=== PATIENT | male | born 1975 | race Caucasian/White ===

== ENCOUNTER 2018-12-25 04:03 | Emergency (ER) | payer BC ==
[2018-12-25] MEDS ORDERED: Morphine 4 MG/ML VIAL (1 ml) 4 MG/ML VIAL IV ONE (04:23)
[2018-12-25] MEDS ORDERED: NS 0.9% 1000 ML** 1,000 ML IV ONE (04:23)
[2018-12-25] MEDS ORDERED: Metoclopramide IV* 5 MG/ML 2 ML VIAL IV SLOW PU ONE (04:23)
--- NOTE | 2018-12-25 04:30 | ED ---
GI/ HPI - HPI Summary HPI Summary: Patient is a 43 y/o M presenting to ED with complaints of stabbing, RUQ pain that onset today, 12/25/18 at 0130. He endorses nausea but denies vomiting and diarrhea. PMHx of kidney stones, patient reports that he currently has a kidney stone at present. He reports no Hx of abdominal surgery and Hx of gallbladder disease. However, he states that he has had 1-2 similar previous episodes of pain some time ago. Patient had a cheeseburger for dinner. On triage, pain is rated 9/10. Nothing is noted to aggravate/alleviate Sx. PMHx of aortic aneurysms , DVT, PE, kidney stones, bipolar disorder, anxiety, ADHD, substance abuse. PSHx of right knee ACL repair, meniscus repair, cardiac catheter without stents. FMHx of diabetes. Patient denies present substance and alcohol usage, never smoked tobacco. Home medications and allergies are reviewed. - History of Current Complaint Chief Complaint: EDAbdPain Time Seen by Provider: 12/25/18 04:08 Stated Complaint: "ABD PAIN" PER PT Hx Obtained From: Patient Onset/Duration: Started Hours Ago - onset 0130 today, Still Present Timing: Constant, Lasting Hours - onset 0130 today Severity: Severe Current Severity: Severe Pain Intensity: 9 Location of Pain: RUQ Pain Characteristics: Sharp - stabbing Associated Signs and Symptoms: Positive: Nausea. Negative: Vomiting, Diarrhea Aggravating Factor(s): Nothing Alleviating Factor(s): Nothing - Allergy/Home Medications Allergies/Adverse Reactions: Allergies Allergy/AdvReac Type Severity Reaction Status Date / Time bupropion [From Wellbutrin] Allergy Palpitation Verified 11/16/18 16:21 s tramadol Allergy Altered Verified 12/25/18 04:09 Mental Status PMH/Surg Hx/FS Hx/Imm Hx Endocrine/Hematology History: Denies: Hx Blood Disorders, Hx Blood Transfusions, Hx Bone Marrow Disease, Hx Diabetes, Hx Systemic Lupus Erythematosus, Hx Sickle Cell Disease, Hx Thyroid Disease, Hx Anemia, Hx Unexplained Bleeding, Other Endocrine/ Hematological Disorders Cardiovascular History: Reports: Hx Aneurysm - two aortic aneurysms, Hx Deep Vein Thrombosis - back of left knee 05/20/13, Other Cardiovascular Problems/ Disorders - aotic aneyrsm Denies: Hx Angina, Hx Angioplasty, Hx Auto Implanted Cardiovert Defib, Hx Cardiac Arrest, Hx Cardiomegaly, Hx Congenital Heart Disease, Hx Congestive Heart Failure, Hx Embolism, Hx Hypercholesterolemia, Hx Hypotension, Hx Hypertension, Hx Pacemaker/ICD, Hx Peripheral Vascular Disease, Hx Rheumatic Fever, Hx Syncope Respiratory History: Reports: Hx Pulmonary Embolism, Hx Sleep Apnea - CPAP 7-8/ night Denies: Hx Cystic Fibrosis, Hx Lung Cancer, Hx Pleural Effusion, Hx Pneumonia , Hx Pulmonary Edema, Hx Seasonal Allergies, Other Respiratory Problems/ Disorders GI History: Denies: Hx Cirrhosis, Hx Crohn's Disease, Hx Diverticulosis, Hx Gall Bladder Disease, Hx Gastroesophageal Reflux Disease, Hx Gastrointestinal Bleed, Hx Hiatal Hernia, Hx Irritable Bowel, Hx Jaundice, Hx Obstructive Bowel, Hx Ileostomy, Hx Pyloric Stenosis, Hx Ulcer, Other GI Disorders History: Reports: Hx Kidney Stones Denies: Hx Renal Disease Musculoskeletal History: Reports: Other Musculoskeletal History - DVT Denies: Hx Rheumatoid Arthritis, Hx Osteoporosis Sensory History: Reports: Hx Contacts or Glasses Denies: Hx Cataracts, Hx Eye Injury, Hx Eye Prosthesis, Hx Glaucoma, Hx Legally Blind, Hx Macular Degeneration, Hx Vision Problem, Hx Deafness, Hx Hearing Aid, Hx Hearing Problem, Other Sensory Impairments Opthamlomology History: Reports: Hx Contacts or Glasses Denies: Hx Cataracts, Hx Eye Injury, Hx Eye Prosthesis, Hx Glaucoma, Hx Legally Blind, Hx Macular Degeneration, Hx Vision Problem, Other Sensory Impairments Neurological History: Reports: Other Neuro Impairments/Disorders - bipolar anxiety and ADHD Denies: Hx Dementia, Hx Developmental Delay, Hx Headaches, Hx Migraine, Hx Nerve Disease, Hx Seizures, Hx Spinal Cord Injury, Hx Transient Ischemic Attacks (TIA) Psychiatric History: Reports: Hx Anxiety, Hx Attention Deficit Hyperactivity Disorder, Hx Bipolar Disorder, Hx Substance Abuse Denies: Hx Eating Disorder, Hx Depression, Hx Panic Disorder, Hx Post Traumatic Stress Disorder, Hx Inpatient Treatment, Hx Schizophrenia - Surgical History Surgery Procedure, Year, and Place: R Knee ACL REPAIR, MENISCUS REPAIR; cadiac cath - NO STENTS; KIDNEY STONES 2X; Hx Anesthesia Reactions: No Infectious Disease History: No Infectious Disease History: Denies: Hx Clostridium Difficile, Hx Hepatitis, Hx of Known/Suspected MRSA, Hx Shingles, Hx Tuberculosis, Hx Known/Suspected VRE, Traveled Outside the [place] in Last 30 Days - Family History Known Family History: Positive: Diabetes - Social History Alcohol Use: None Substance Use Type: Reports: None Smoking Status (MU): Never Smoked Tobacco Review of Systems Negative: Fever - on vitals, temp is 98.4 F Positive: Abdominal Pain, Nausea. Negative: Vomiting, Diarrhea All Other Systems Reviewed And Are Negative: Yes Physical Exam - Summary Physical Exam Summary: VITAL SIGNS: Reviewed. GENERAL: Patient is a well-developed and nourished male who is lying comfortable in the stretcher. Patient is not in any acute respiratory distress. HEAD AND FACE: No signs of trauma. No ecchymosis, hematomas or skull depressions. No sinus tenderness. EYES: PERRLA, EOMI x 2, No injected conjunctiva, no nystagmus. EARS: Hearing grossly intact. Ear canals and tympanic membranes are within normal limits. MOUTH: Oropharynx within normal limits. NECK: Supple, trachea is midline, no adenopathy, no JVD, no carotid bruit, no c- spine tenderness, neck with full ROM CHEST: Symmetric, no tenderness at palpation LUNGS: Clear to auscultation bilaterally. No wheezing or crackles. CVS: Regular rate and rhythm, S1 and S2 present, no murmurs or gallops appreciated. ABDOMEN: Soft, RUQ tenderness. No signs of distention. No rebound no guarding, and no masses palpated. Bowel sounds are normal. EXTREMITIES: FROM in all major joints, no edema, no cyanosis or clubbing. NEURO: Alert and oriented x 3. No acute neurological deficits. Speech is normal and follows commands. SKIN: Dry and warm Triage Information Reviewed: Yes Vital Signs On Initial Exam: Initial Vitals Temp Pulse Resp BP Pulse Ox 98.4 F 68 22 142/101 99 12/25/18 04:08 12/25/18 04:08 12/25/18 04:08 12/25/18 04:08 12/25/18 04:08 Vital Signs Reviewed: Yes Diagnostics - Vital Signs Vital Signs Temp Pulse Resp BP Pulse Ox 12/25/18 04:08 98.4 F 68 22 142/101 99 - Laboratory Result Diagrams: 12/25/18 04:40 12/25/18 04:40 Lab Statement: Any lab studies that have been ordered have been reviewed, and results considered in the medical decision making process. Re-Evaluation - Re-Evaluation First Eval Re-Evaluation Time: 05:46 Change: Improved Comment: Patient was sleeping at this time. When he was awoken, patient reported improvement of pain. Results of labs and tests were discussed with the patient, he will be discharged to home and follow up with PCP and surgery. Patient is agreeable with this. He was also advised to avoid fatty foods. GIGU Course/Dx - Course Course Of Treatment: Patient is a 43 y/o M presenting to ED with complaints of stabbing, RUQ pain that onset today, 12/25/18 at 0130. He endorses nausea but denies vomiting and diarrhea. PMHx of kidney stones, patient reports that he currently has a kidney stone at present. He reports no Hx of abdominal surgery and Hx of gallbladder disease. However, he states that he has had 1-2 similar previous episodes of pain some time ago. On physical exam, RUQ tenderness is noted. Labs showed MPV 6.9, creatinine 1.25, glucose 101, AST 16, ALT 12, alk phos 64, CRP 1.83, amylase 40, lipase 55. During ED course, patient received fluids, morphine 4 mg IV ED ONCE ONE, and reglan 10 mg IV SLOW PU ONCE ONE. After ED course, patient reported improvement of Sx. Labs showed no leukocytosis , normal LFTs. There is no US available at this time. However, patient's exam is consistent with cholelithiasis. Therefore, patient is instructed to follow up with surgery, PCP, and is advised to avoid fatty foods. Patient is agreeable with this plan and discharge to home. - Diagnoses Provider Diagnoses: Cholelithiasis Discharge - Sign-Out/Discharge Documenting (check all that apply): Patient Departure - discharge Patient Received Moderate/Deep Sedation with Procedure: No - Discharge Plan Condition: Stable Disposition: HOME Patient Education Materials: Gallstones (ED) Referrals: James Goins MD [Primary Care Provider] - 3 Days Perez Mohan MD [Medical Doctor] - 3 Days Additional Instructions: PLEASE RETURN TO THE ED IMMEDIATELY FOR WORSENING OR CONCERNING SYMPTOMS. FOLLOW UP WITH YOUR PRIMARY CARE PHYSICIAN AND SURGERY WITHIN THREE DAYS. - Attestation Statements Document Initiated by Scribe: Yes Documenting Scribe: STAN MCMAHON Provider For Whom Scribe is Documenting (Include Credential): TAY JACOBO MD Scribe Attestation: ISTAN, scribed for TAY JACOBO MD on 12/25/18 at 0553. Status of Scribe Document: Ready
--- OUTSIDE RECORDS SUMMARY | 2018-12-25 04:33 | XMS REPORT | Continuity of Care Document ---
:1975 External Reference #:[id number] Author Name Ana Bautista Care Team Providers Name Role Phone James Goins III, MD Primary Care Physician Unavailable Payers Date Identification Numbers Payment Provider Subscriber Expires: 2017 Policy Number: [id number] Juan Qiu Group Number: [id number] [address] PayID: [id number] [place] [address] Effective: 2012 Policy Number: [id number] [employer] Marivel Adler Expires: 2016 Group Number: [id number] [id number] PayID: [id number] [place] [address] Expires: 2016 Policy Number: [id number] Elio Qiu Onset: 2015 Group Name: [id number] [address] PayID: [id number] [place] [address] Expires: 2016 PayID: [id number] BS Rj Qiu [address] [address] [place] [address] Effective: 2017 Policy Number: [id number] BS Rj Qiu Expires: 2017 PayID: [id number] [address] [address] [place] [address] Effective: 2017 Policy Number: [id number] BS Rj Qiu PayID: [id number] [address] [address] [place] [address] Advance Directives Description No Information Available Problems Active Problems Provider Date Malaise and fatigue Rashawn Miranda M.D. Onset: 11/10/2013 Renal failure syndrome Rashawn Miranda M.D. Onset: 11/10/2013 Pulmonary embolism Rashawn Miranda M.D. Onset: 11/10/2013 Chronis Venous Embolism&Thrombosis,Deep Rashawn Miranda M.D. Onset: 11/10/2013 Vessel Distal Lower Chronic pain syndrome James Goins M.D. 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 Onset: 09/03/2017 Dizziness and giddiness Osman Mon M.D. Onset: 09/03/2017 Radiculopathy, cervical region Osman Mon M.D. Onset: 11/08/2018 Benign neoplasm of cerebral meninges Osman Mon M.D. Onset: 03/02/2018 Low back pain Osman Mon M.D. Onset: 11/02/2017 Inflammatory spondylopathy Osman Mon M.D. 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 Tobacco Use Start: Unknown End: Patient is a former quit 2007 Unknown smoker Recreational Drug Use Denies Drug Use Smoking Status Reviewed: 12/20/18 Patient is a former quit 2008 smoker Exercise Type/Frequency Exercises sporadically Allergies, Adverse Reactions, Alerts Active Allergies Reaction Severity Comments Date Buspirone palpitations 03/23/2017 Tramadol ? change in mental status 03/23/2017 Medications Active Medications SIG Qnty Indications Ordering Date Provider Metaxalone Take one 30tabs Z79.899 Viktoriya Villarreal, 09/06/2018 800mg Tablets tablet/capsule by M.D. mouth at bedtime. avoid other muscular relaxants Meloxicam take one 60tabs M46.90 Viktoriya Villarreal, 09/07/2017 7.5mg Tablets capsule/tablet M.D. daily by mouth as needed Cpap for use while 1units G47.30 Tolu Cabello NP 05/25/2017 Device sleeping Cpap Mask And Supplies use with cpap 1units G47.30 Tolu Cabello NP 2016 nightly Device Cannibus Medicinal prn Unknown Adderall one tablet two Unknown 15mg Tablets times a day as needed Vitamin D 1 by mouth every Unknown 3000Unit Tablets day Valium 1 tab up to 4 x Unknown 10mg Tablets daily as needed Trifluoperazine HCL once daily Unknown Tablets Metformin HCL 1 by mouth twice Unknown 500mg Tablets a day Benadryl Allergy take 1-2 tablets Unknown 25mg by mouth every Capsules night at bedtime as needed History Medications Azithromycin 2 tabs by mouth 6tabs J01.90 Tolu Cabello NP 09/01/2018 - 250mg every day x1 day, 09/01/2018 Tablets 1 tab by mouth every day x 4 days Azithromycin 2 tabs by mouth 6tabs J01.90 Tolu Cabello NP 09/01/2018 - 250mg every day x1 day, 09/08/2018 Tablets 1 tab by mouth every day x 4 days Oralone thin layer of 5gm K12.0 Tolu Cabello NP 09/01/2018 - 0.1% Paste paste to affected 11/07/2018 areas 2-4 times daily Metaxalone take one 30tabs Z79.899 Viktoriya Villarreal, 05/11/2018 - 400mg tablet/capsule by M.DFranklyn 09/06/2018 Tablets mouth at bedtime. as needed for muscular spasms Celebrex take one 30caps Viktoriya Villarreal, 06/04/2017 - 200mg capsule/tablet M.DFranklyn 09/02/2017 Capsules daily by mouth as needed for pain, avoid ibuprofen and other nsaids Naproxen 1 tablet by mouth 60tabs S83.412A Radhika 08/01/2015 - 500mg with food twice THELMA Roger 03/23/2017 Tablets daily. Clonazepam 2x times a day as Unknown - 2mg needed 09/06/2017 Tablets Klonopin bid Unknown - 2mg 09/02/2017 Tablets Rexulti every other day Unknown - Unsure 09/02/2017 Tablets Adderall XR 1 by mouth every Unknown - 15mg day 05/25/2017 Caps ER 24HR Ibuprofen 2 times a week as Unknown - 600mg needed 06/04/2017 Tablets Pristiq 1 by mouth every 30tabs Unknown - 100mg day 03/23/2017 Tablets ER 24HR Nystatin topically twice a 60g Unknown - day as needed 03/23/2017 208852Veqn/GM Cream Doxycycline Hyclate twice a day by 14caps Unknown - mouth 03/23/2017 100mg Capsules Phentermine HCL 1 by mouth bid 30caps Unknown - 03/23/2017 37.5 Capsules Androgel Pump 2 actuations 1bottle Unknown - every morning 11/10/2013 20.25mg/Act (1.62%) Gel Warfarin Sodium take as directed 100tabs Unknown - 5mg 03/23/2017 Tablets Topamax 1 by mouth twice 60tabs Unknown - 100mg a day 11/10/2013 Tablets Liothyronine Sodium 1 by mouth every 90tabs Unknown - day 03/23/2017 50mcg Tablets Valium 1 by mouth bid 1tabs Unknown - 10mg Tablets 03/23/2017 Adderall 2 by mouth twice 60tabs Unknown - 20mg a day 09/05/2015 Tablets Flonase 1 intranasal puff 1units Unknown - 50mcg/Act to each nostril 03/23/2017 Suspension daily Medications Administered in Office Medication SIG Qnty Indications Ordering Provider Date Depomedrol 40MG Jana Chung M.D. 08/01/2015 Injection Immunizations CPT Code Status Date Vaccine Reaction Lot # [id number] Given 05/11/2018 Influenza Virus Vaccine, no reaction noted [id number] Quadrivalent, Split, Preservative Free Vital Signs Date Vital Result Comment 12/20/2018 1:32pm Height 71 inches 5'11" Weight 250.00 lb BP Systolic Sitting 140 mmHg BP Diastolic Sitting 84 mmHg Pain Level 3 BMI (Body Mass Index) 34.9 kg/m2 12/07/2018 2:35pm Height 72 inches 6'0" Weight 260.00 lb Heart Rate 84 /min BP Systolic Sitting 118 mmHg Lue large cuff BP Diastolic Sitting 88 mmHg Lue large cuff Respiratory Rate 24 /min O2 % BldC Oximetry 97 % BMI (Body Mass Index) 35.3 kg/m2 Neck Circumference in inches 16.25 11/08/2018 9:24am Height 72 inches 6'0" Weight 255.00 lb Heart Rate 78 /min BP Systolic 128 mmHg BP Diastolic 88 mmHg BMI (Body Mass Index) 34.6 kg/m2 09/06/2018 8:20am Height 72 inches 6'0" Weight 262.00 lb Heart Rate 91 /min BP Systolic Sitting 134 mmHg BP Diastolic Sitting 94 mmHg Respiratory Rate 14 /min Pain Level 2 BMI (Body Mass Index) 35.5 kg/m2 09/01/2018 3:31pm Height 72 inches 6'0" Weight 270.50 lb Heart Rate 87 /min BP Systolic 145 mmHg BP Diastolic 97 mmHg Body Temperature 98.3 F O2 % BldC Oximetry 98 % BMI (Body Mass Index) 36.7 kg/m2 05/11/2018 10:14am Height 72 inches 6'0" Weight 257.25 lb Heart Rate 85 /min BP Systolic Sitting 116 mmHg BP Diastolic Sitting 88 mmHg Pain Level 3 O2 % BldC Oximetry 97 % BMI (Body Mass Index) 34.9 kg/m2 03/02/2018 10:16am Height 72 inches 6'0" Weight 260.00 lb Heart Rate 76 /min BP Systolic 114 mmHg BP Diastolic 88 mmHg Respiratory Rate 16 /min BMI (Body Mass Index) 35.3 kg/m2 02/10/2018 10:07am Height 72 inches 6'0" Weight 261.00 lb Heart Rate 80 /min BP Systolic Sitting 110 mmHg BP Diastolic Sitting 84 mmHg Respiratory Rate 14 /min Pain Level 4 BMI (Body Mass Index) 35.4 kg/m2 11/05/2017 10:58am Height 72 inches 6'0" Weight 267.00 lb Heart Rate 77 /min BP Systolic Sitting 136 mmHg BP Diastolic Sitting 92 mmHg Respiratory Rate 14 /min Pain Level 5 BMI (Body Mass Index) 36.2 kg/m2 11/02/2017 3:51pm Height 72 inches 6'0" Weight 250.00 lb Heart Rate 80 /min BP Systolic Sitting 132 mmHg BP Diastolic Sitting 16 mmHg BMI (Body Mass Index) 33.9 kg/m2 09/07/2017 11:24am Height 72 inches 6'0" Weight 250.00 lb per pt Heart Rate 80 /min BP Systolic Sitting 130 mmHg BP Diastolic Sitting 90 mmHg Respiratory Rate 14 /min Body Temperature 98.3 F Pain Level 6 O2 % BldC Oximetry 98 % BMI (Body Mass Index) 33.9 kg/m2 09/03/2017 9:24am Height 72 inches 6'0" Weight 249.00 lb Heart Rate 70 /min BP Systolic 138 mmHg BP Diastolic 88 mmHg BMI (Body Mass Index) 33.8 kg/m2 06/04/2017 4:14pm Height 72 inches 6'0" Weight 230.00 lb Heart Rate 78 /min BP Systolic Sitting 116 mmHg BP Diastolic Sitting 82 mmHg Respiratory Rate 14 /min Pain Level 2 BMI (Body Mass Index) 31.2 kg/m2 05/25/2017 4:21pm Weight 227.00 lb Heart Rate 85 /min BP Systolic Sitting 128 mmHg BP Diastolic Sitting 88 mmHg Body Temperature 98.4 F O2 % BldC Oximetry 98 % 05/06/2017 2:08pm Height 72 inches 6'0" Weight 225.00 lb Heart Rate 84 /min BP Systolic Sitting 124 mmHg BP Diastolic Sitting 86 mmHg Respiratory Rate 14 /min Body Temperature 99.0 F Pain Level 4 BMI (Body Mass Index) 30.5 kg/m2 03/23/2017 11:47am Height 72 inches 6'0" Weight 196.00 lb Heart Rate 78 /min BP Systolic Sitting 128 mmHg BP Diastolic Sitting 74 mmHg O2 % BldC Oximetry 98 % BMI (Body Mass Index) 26.6 kg/m2 09/06/2015 11:49am Height 72 inches 6'0" Weight 225.00 lb Heart Rate 81 /min BP Systolic 132 mmHg BP Diastolic 80 mmHg BMI (Body Mass Index) 30.5 kg/m2 08/01/2015 10:05am Height 72 inches 6'0" Weight 229.00 lb Heart Rate 77 /min BP Systolic 108 mmHg BP Diastolic 72 mmHg BMI (Body Mass Index) 31.1 kg/m2 11/10/2013 10:55am Height 72 inches 6'0" Weight 283.75 lb Heart Rate 98 /min BP Systolic Sitting 138 mmHg BP Diastolic Sitting 88 mmHg BMI (Body Mass Index) 38.5 kg/m2 Results Test Date Facility Test Result H/L Range Note Laboratory test 11/08/2018 [facility] Acth 33 pg/mL 1 finding [address] [place] [address] [phone] Basic Metabolic Panel 11/08/2018 [facility] Sodium 137 mmol/L N 135-[address] [place] [address] [phone] Potassium 4.3 mmol/L N 3.5-5.0 Chloride 107 mmol/L N 101-111 Co2 Carbon Dioxide 23 mmol/L N 22-32 Anion Gap 7 mmol/L N 2-11 Glucose 112 mg/dL High 70-100 Blood Urea Nitrogen 19 mg/dL N 6-24 Creatinine 1.18 mg/dL High 0.67-1.17 BUN/Creatinine Ratio 16.1 N 8-20 Calcium 9.4 mg/dL N 8.6-10.3 Egfr Non- 66.8 >60 Egfr 80.8 >60 2 Basic Metabolic Panel 09/30/2018 [facility] Sodium 137 mmol/L N 135-[address] [place] [address] [phone] Potassium 4.1 mmol/L N 3.5-5.0 Chloride 105 mmol/L N 101-111 Co2 Carbon Dioxide 26 mmol/L N 22-32 Anion Gap 6 mmol/L N 2-11 Glucose 85 mg/dL N 70-100 Blood Urea Nitrogen 23 mg/dL N 6-24 Creatinine 1.27 mg/dL High 0.67-1.17 BUN/Creatinine Ratio 18.1 N 8-20 Calcium 9.5 mg/dL N 8.6-10.3 Egfr Non- 61.3 >60 Egfr 74.2 >60 3 Laboratory test 09/06/2018 [facility] Erythrocyte Sed 20 mm/Hr High 0-[address] [place] [address] [phone] C Reactive Protein 8.02 mg/L High <8.01 5 CBC Auto Diff 09/06/2018 [facility] White Blood 8.9 10^3/uL N 3.5-10.[address] [place] [address] [phone] Red Blood Count 5.48 10^6/uL High 4.00-5.40 Hemoglobin 16.0 g/dL N 14.0-18.0 Hematocrit 47 % N 42-52 Mean Corpuscular Volume 86 fL N 80-94 Mean Corpuscular Hemoglobin 29 pg N 27-31 Mean Corpuscular HGB Conc 34 g/dL N 31-36 Red Cell Distribution Width 13 % N 10.5-15 Platelet Count 316 10^3/uL N 150-450 Mean Platelet Volume 7.1 fL Low 7.4-10.4 Abs Neutrophils 4.9 10^3/uL N 1.5-7.7 Abs Lymphocytes 2.9 10^3/uL N 1.0-4.8 Abs Monocytes 0.8 10^3/uL N 0-0.8 Abs Eosinophils 0.3 10^3/uL N 0-0.6 Abs Basophils 0 10^3/uL N 0-0.2 Abs Nucleated RBC 0 10^3/uL Granulocyte % 55.0 % Lymphocyte % 32.2 % Monocyte % 9.0 % Eosinophil % 3.5 % Basophil % 0.3 % Nucleated Red Blood Cells % 0 Comp Metabolic Panel 09/06/2018 [facility] Sodium 138 mmol/L N 135-[address] [place] [address] [phone] Potassium 4.5 mmol/L N 3.5-5.0 Chloride 107 mmol/L N 101-111 Co2 Carbon Dioxide 25 mmol/L N 22-32 Anion Gap 6 mmol/L N 2-11 Glucose 110 mg/dL High 70-100 Blood Urea Nitrogen 23 mg/dL N 6-24 Creatinine 1.26 mg/dL High 0.67-1.17 BUN/Creatinine Ratio 18.3 N 8-20 Calcium 9.8 mg/dL N 8.6-10.3 Total Protein 6.9 g/dL N 6.4-8.9 Albumin 4.5 g/dL N 3.2-5.2 Globulin 2.4 g/dL N 2-4 Albumin/Globulin Ratio 1.9 N 1-3 Total Bilirubin 0.40 mg/dL N 0.2-1.0 Alkaline Phosphatase 74 U/L N 34-104 Alt 25 U/L N 7-52 Ast 23 U/L N 13-39 Egfr Non- 61.9 >60 Egfr 74.9 >60 6 Urinalysis Profile 09/06/2018 [facility] Urine Color Yellow [address] [place] [address] [phone] Urine Appearance Clear Urine Specific [place] 1.035 High 1.010-1.030 Urine pH 5.0 N 5-9 Urine Urobilinogen Negative Negative Urine Ketones Negative Negative Urine Protein 1+(30 mg/dL) Abnormal Negative Urine Leukocytes Negative Negative Urine Blood Negative Negative Urine Nitrite Negative Negative Urine Bilirubin Negative Negative Urine Glucose Negative Negative Urine White Blood Cell Absent Absent Urine Red Blood Cell Absent Absent Urine Bacteria Absent Absent Urine Squamous Epithelial Cell Present Abnormal Absent Urine Calcium Oxalate Cryst Present Abnormal Absent Heavy Metal Blool 03/01/2018 [facility] Arsenic <1 ng/mL 0- [address] [place] [address] [phone] Lead <1.0 g/dL 0.0-4.9 8 Mercury <1 ng/mL 0-9 9 Cadmium <0.2 ng/mL 0.0-4.[address] [place] [id number] [place] [address] Guardian First Name VIKTORIYA Guardian Last Name MONET Home Phone UNK Venous/Capillary Heavy Metals Venous Patient Race Submitting Laboratory Phone [phone] Basic Metabolic Panel 03/01/2018 [facility] Sodium 138 mmol/L N 135-[address] [place] [address] [phone] Potassium 4.4 mmol/L N 3.5-5.0 Chloride 106 mmol/L N 101-111 Co2 Carbon Dioxide 25 mmol/L N 22-32 Anion Gap 7 mmol/L N 2-11 Glucose 96 mg/dL N 70-100 Blood Urea Nitrogen 14 mg/dL N 6-24 Creatinine 1.19 mg/dL High 0.67-1.17 BUN/Creatinine Ratio 11.8 N 8-20 Calcium 9.5 mg/dL N 8.6-10.3 Egfr Non- 66.4 >60 Egfr 80.4 >60 12 Laboratory test 02/08/2018 [facility] C Reactive 1.73 mg/L N < 8.[address] [place] [address] [phone] Erythrocyte Sed Rate 13 mm/Hr N 0-14 14 CBC Auto Diff 02/08/2018 [facility] White Blood 7.4 10^3/uL N 3.5-10.[address] [place] [address] [phone] Red Blood Count 5.37 10^6/uL N 4.00-5.40 Hemoglobin 16.0 g/dL N 14.0-18.0 Hematocrit 45 % N 42-52 Mean Corpuscular Volume 83 fL N 80-94 Mean Corpuscular Hemoglobin 30 pg N 27-31 Mean Corpuscular HGB Conc 36 g/dL N 31-36 Red Cell Distribution Width 13 % N 10.5-15 Platelet Count 326 10^3/uL N 150-450 Mean Platelet Volume 7.0 um3 Low 7.4-10.4 Abs Neutrophils 4.3 10^3/uL N 1.5-7.7 Abs Lymphocytes 2.1 10^3/uL N 1.0-4.8 Abs Monocytes 0.6 10^3/uL N 0-0.8 Abs Eosinophils 0.3 10^3/uL N 0-0.6 Abs Basophils 0 10^3/uL N 0-0.2 Abs Nucleated RBC 0 10^3/uL Granulocyte % 58.4 % N 38-83 Lymphocyte % 28.8 % N 25-47 Monocyte % 7.6 % High 0-7 Eosinophil % 4.7 % N 0-6 Basophil % 0.5 % N 0-2 Nucleated Red Blood Cells % 0.1 Comp Metabolic Panel 02/08/2018 [facility] Sodium 138 mmol/L N 135-[address] [place] [address] [phone] Potassium 4.2 mmol/L N 3.5-5.0 Chloride 105 mmol/L N 101-111 Co2 Carbon Dioxide 25 mmol/L N 22-32 Anion Gap 8 mmol/L N 2-11 Glucose 118 mg/dL High 70-100 Blood Urea Nitrogen 23 mg/dL N 6-24 Creatinine 1.23 mg/dL High 0.67-1.17 BUN/Creatinine Ratio 18.7 N 8-20 Calcium 10.0 mg/dL N 8.6-10.3 Total Protein 6.5 g/dL N 6.4-8.9 Albumin 4.4 g/dL N 3.2-5.2 Globulin 2.1 g/dL N 2-4 Albumin/Globulin Ratio 2.1 N 1-3 Total Bilirubin 0.40 mg/dL N 0.2-1.0 Alkaline Phosphatase 67 U/L N 34-104 Alt 10 U/L N 7-52 Ast 15 U/L N 13-39 Egfr Non- 63.9 >60 Egfr 77.3 >60 15 Laboratory test 02/08/2018 [facility] TSH (Thyroid 2.22 mcIU/mL N 0.34-5.60 [address] Stim Horm) [place] [address] [phone] Laboratory test 09/07/2017 [facility] C Reactive < 1.00 mg/L N < 5.00 [address] [place] [address] [phone] Erythrocyte Sed Rate 10 mm/Hr N 0-14 18 CBC Auto Diff 09/07/2017 [facility] White Blood 7.6 10^3/uL N 3.5-10.[address] [place] [address] [phone] Red Blood Count 5.08 10^6/uL N 4.0-5.4 Hemoglobin 15.2 g/dL N 14.0-18.0 Hematocrit 43 % N 42-52 Mean Corpuscular Volume 85 fL N 80-94 Mean Corpuscular Hemoglobin 30 pg N 27-31 Mean Corpuscular HGB Conc 35 g/dL N 31-36 Red Cell Distribution Width 13 % N 10.5-15 Platelet Count 337 10^3/uL N 150-450 Mean Platelet Volume 7 um3 Low 7.4-10.4 Abs Neutrophils 4.3 10^3/uL N 1.5-7.7 Abs Lymphocytes 2.3 10^3/uL N 1.0-4.8 Abs Monocytes 0.7 10^3/uL N 0-0.8 Abs Eosinophils 0.4 10^3/uL N 0-0.6 Abs Basophils 0 10^3/uL N 0-0.2 Abs Nucleated RBC 0 10^3/uL Granulocyte % 56.5 % N 38-83 Lymphocyte % 29.6 % N 25-47 Monocyte % 8.7 % N 1-9 Eosinophil % 4.6 % N 0-6 Basophil % 0.6 % N 0-2 Nucleated Red Blood Cells % 0.2 Comp Metabolic Panel 09/07/2017 [facility] Sodium 137 mmol/L N 133-[address] [place] [address] [phone] Potassium 4.4 mmol/L N 3.5-5.0 Chloride 105 mmol/L N 101-111 Co2 Carbon Dioxide 26 mmol/L N 22-32 Anion Gap 6 mmol/L N 2-11 Glucose 104 mg/dL High 70-100 Blood Urea Nitrogen 20 mg/dL N 6-24 Creatinine 1.12 mg/dL N 0.67-1.17 BUN/Creatinine Ratio 17.9 N 8-20 Calcium 9.5 mg/dL N 8.6-10.3 Total Protein 6.2 g/dL Low 6.4-8.9 Albumin 4.2 g/dL N 3.2-5.2 Globulin 2.0 g/dL N 2-4 Albumin/Globulin Ratio 2.1 N 1-3 Total Bilirubin 0.40 mg/dL N 0.2-1.0 Alkaline Phosphatase 51 U/L N 34-104 Alt 7 U/L N 7-52 Ast 13 U/L N 13-39 Egfr Non- 71.2 >60 Egfr 91.6 >60 19 Vitamin D 1,25 05/06/2017 [facility] Vitamin D Total 21.4 ng/mL N 20-50 And Vitamin D,[address] 25(Oh) [place] [address] [phone] Vitamin D, 1,25 Dihydroxy 34 pg/mL N 18-64 20 Laboratory test 05/06/2017 [facility] Ferritin 106.5 ng/mL N 24-[address] [place] [address] [phone] Ssa/SSB Abs Igg 05/06/2017 [facility] SS-A/Ro <0.2 U N [address] [place] [address] [phone] SS-B/La Antibody <0.2 U N 22 Tick-Borne Panel 05/06/2017 [facility] Babesia Negative N Negative PCR Blood [address] [place] [address] [phone] Babesia ducani Negative N Negative Babesia divergens/Mo-1 Negative N Negative 23 Anaplasma phagocytophilum Negative N Negative Ehrlichia chaffeensis Negative N Negative Ehrlichia ewingii/canis Negative N Negative Ehrlichia muris-like Negative N Negative 24 B. miyamotoi PCR, B Negative N Negative 25 Anca AB Ser If 05/06/2017 [facility] C-Anca Negative N Negative [address] [place] [address] [phone] P-Anca Negative N Negative 26 Laboratory test 05/06/2017 [facility] C Reactive < 1.00 N < 5.[address] Protein mg/[place] [address] [phone] Erythrocyte Sed Rate 6 mm/Hr N 0-14 Celiac Panel 05/06/2017 [facility] Tissue Transglutaminase <1.2 U/mL N [address] [place] [address] [phone] Immunoglobulin A 177 mg/dL N 61 - 356 Celiac Interpretation See Comment N 29 Celiac Hla 05/06/2017 [facility] [id number] SEE BELOW N [address] [place] [address] [phone] [id number] SEE BELOW N 31 Celiac Gene Pairs Present? No N Celiac Gene Interpretation See Comment N 32 Hla B27 05/06/2017 [facility] Hla B27 Positive N [address] [place] [address] [phone] Hla B27 Interp See Comment N 34 Laboratory test 05/06/2017 [facility] Angiotensin 44 U/L N 8 - [address] [place] [address] [phone] Aso (Antistreptolysin O) Titer Negative IU/mL N <200 Iu/mL 36 Thyroperoxidase AB 0.39 IU/mL N <9 Basic Metabolic Panel 05/06/2017 [facility] Sodium 139 mmol/L N 133-[address] [place] [address] [phone] Potassium 4.3 mmol/L N 3.5-5.0 Chloride 106 mmol/L N 101-111 Co2 Carbon Dioxide 28 mmol/L N 22-32 Anion Gap 5 mmol/L N 2-11 Glucose 100 mg/dL N 70-100 Blood Urea Nitrogen 21 mg/dL N 6-24 Creatinine 1.09 mg/dL N 0.67-1.17 BUN/Creatinine Ratio 19.3 N 8-20 Calcium 9.5 mg/dL N 8.6-10.3 Egfr Non- 73.8 N >60 Egfr 95.0 N >60 37 Cardiolipin 05/06/2017 [facility] Phospholipid Ab < 9.4 MPL N 38 Igg/Igm [address] IgM, [place] [address] [phone] Phospholipid Ab IgG < 9.4 GPL N 39 Laboratory test 05/06/2017 [facility] Creatine 61 U/L N 10- 223 finding 101 Kinase(CK) [place] [address] [phone] Beta 2 05/06/2017 [facility] Beta 2 <9.4 N 40 Glycoprotein I Abs [address] Glycoprotein IgG U/[place] [address] [phone] Beta 2 Glycoprotein IgM <9.4 U/mL N 41 Laboratory test 05/06/2017 [facility] Aldolase 4.5 U/L N <7.[address] [place] [address] [phone] Lipid Profile 03/23/2017 [facility] Triglycerides 96 mg/dL N 43 (Trig/Chol/HDL) [address] [place] [address] [phone] Cholesterol 178 mg/dL N 44 HDL Cholesterol 59.6 mg/dL N 45 LDL Cholesterol 99 mg/dL N 46 Vitamin B12 And 03/23/2017 [facility] Vitamin B12 384 pg/mL N 180-914 [address] [place] [address] [phone] Folic Acid (Folate) > 20.00 ng/mL N >3.99 48 Laboratory test 03/23/2017 [facility] TSH (Thyroid 3.06 mcIU/mL N 0.34-5.[address] Stim Horm) [place] [address] [phone] Lyme Western 03/23/2017 [facility] Lyme Disease Negative N Negative Blot [address] [place] [address] [phone] Lyme Disease IgG Bands Present No bands detecte <SEE NOTE> kDa N 50 Lyme Disease IgM Ab WB Negative N Negative Lyme Disease IgM Bands Present No bands detecte <SEE NOTE> kDa N 51 Lyme Disease Interpretation See Comment N 52 Laboratory test 03/23/2017 [facility] Lyme Disease Negative N Negative 53 finding [address] [place] [address] [phone] Connective 03/23/2017 [facility] Anti-Nuclear 0.4 U N 54 Tissue Panel [address] [place] [address] [phone] Cyclic Citrullinated Peptide <15.6 U N 55 Interpretation See Comment N 56 Laboratory test 03/23/2017 [facility] Erythrocyte Sed 5 mm/Hr N 0-14 [address] [place] [address] [phone] C Reactive Protein < 1.00 mg/L N < 5.00 58 CBC Auto Diff 03/23/2017 [facility] White Blood 7.8 10^3/uL N 3.5-10.[address] [place] [address] [phone] Red Blood Count 5.18 10^6/uL N 4.0-5.4 Hemoglobin 15.2 g/dL N 14.0-18.0 Hematocrit 45 % N 42-52 Mean Corpuscular Volume 87 fL N 80-94 Mean Corpuscular Hemoglobin 29 pg N 27-31 Mean Corpuscular HGB Conc 34 g/dL N 31-36 Red Cell Distribution Width 13 % N 10.5-15 Platelet Count 305 10^3/uL N 150-450 Mean Platelet Volume 7 um3 Low 7.4-10.4 Abs Neutrophils 4.3 10^3/uL N 1.5-7.7 Abs Lymphocytes 2.3 10^3/uL N 1.0-4.8 Abs Monocytes 0.6 10^3/uL N 0-0.8 Abs Eosinophils 0.4 10^3/uL N 0-0.6 Abs Basophils 0.1 10^3/uL N 0-0.2 Abs Nucleated RBC 0.01 10^3/uL N Granulocyte % 55.9 % N 38-83 Lymphocyte % 29.5 % N 25-47 Monocyte % 8.1 % N 1-9 Eosinophil % 5.6 % N 0-6 Basophil % 0.9 % N 0-2 Nucleated Red Blood Cells % 0.1 N CBC Auto Diff 11/10/2013 [facility] White Blood 6.7 10^3/uL N 4.8-10.[address] [place] [address] [phone] Red Blood Count 4.94 10^6/uL N 4.0-5.4 Hemoglobin 14.8 g/dL N 14.0-18.0 Hematocrit 42 % N 42-52 Mean Corpuscular Volume 86 fL N 80-94 Mean Corpuscular Hemoglobin 30 pg N 27-31 Mean Corpuscular HGB Conc 35 g/dL N 31-36 Red Cell Distribution Width 14 % N 10.5-15 Platelet Count 299 10^3/uL N 150-450 Mean Platelet Volume 7 um3 Low 7.4-10.4 Abs Neutrophils 3.3 10^3/uL N 1.5-7.7 Abs Lymphocytes 2.6 10^3/uL N 1.0-4.8 Abs Monocytes 0.7 10^3/uL N 0-0.8 Abs Eosinophils 0 10^3/uL N 0-0.6 Abs Basophils 0.1 10^3/uL N 0-0.2 Abs Nucleated RBC 0 10^3/uL N Granulocyte % 49.6 % N 38-83 Lymphocyte % 39.4 % N 25-47 Monocyte % 9.8 % High 1-9 Eosinophil % 0.1 % N 0-6 Basophil % 1.1 % N 0-2 Nucleated Red Blood Cells % 0 N Laboratory test 11/10/2013 [facility] C Reactive 1.23 mg/L N < 5.00 59 finding 101 [facility] [place] [place] [address] [phone] Erythrocyte Sed Rate 19 mm/Hr High 0-14 Cortisol 11.21 g/dL N 60 Free T4 0.76 ng/mL N 0.61-1.12 Salty (Anti-Nuclear AB) Screen Negative N Negative Shanelle Screen Negative N Negative 61 Comp Metabolic Panel 11/10/2013 [facility] Sodium 137 mmol/L N 133-145 [address] [place] [address] [phone] Potassium 4.3 mmol/L N 3.7-5.6 Chloride 103 mmol/L N 101-111 Co2 Carbon Dioxide 28 mmol/L N 22-32 Anion Gap 6 mmol/L N 2-11 Glucose 95 mg/dL N 70-100 Blood Urea Nitrogen 16 mg/dL N 6-24 Creatinine 1.20 mg/dL High 0.67-1.17 BUN/Creatinine Ratio 13.3 N 8-20 Calcium 9.4 mg/dL N 8.6-10.3 Total Protein 6.9 g/dL N 6.4-8.9 Albumin 4.4 g/dL N 3.2-5.2 Globulin 2.5 g/dL N 2-4 Albumin/Globulin Ratio 1.8 N 1-3 Total Bilirubin 0.40 mg/dL N 0.2-1.0 Alkaline Phosphatase 63 U/L N 34-104 Alt 11 U/L N 7-52 Ast 16 U/L N 13-39 Egfr Non- 67.1 N >60 Egfr 86.2 N >60 62 1 REFERENCE VALUE 7.2-63 (a.m. collection) Test Performed by: [facility] [address] [place] [address] 2 Because ethnic data is not always readily available, this report includes an eGFR for both -Americans and non- Americans. The National Kidney Disease Education Program (NKDEP) does not endorse the use of the MDRD equation for patients that are not between the ages of 18 and 70, are , have extremes of body size, muscle mass, or nutritional status, or are non- or non-. According to the National Kidney Foundation, irrespective of diagnosis, the stage of the disease is based on the level of kidney function: Stage Description GFR(mL/min/1.73 m(2)) 1 Kidney damage with normal or decreased GFR 90 2 Kidney damage with mild decrease in GFR 60-89 3 Moderate decrease in GFR 30-59 4 Severe decrease in GFR 15-29 5 Kidney failure <15 (or dialysis) 3 Because ethnic data is not always readily available, this report includes an eGFR for both -Americans and non- Americans. The National Kidney Disease Education Program (NKDEP) does not endorse the use of the MDRD equation for patients that are not between the ages of 18 and 70, are , have extremes of body size, muscle mass, or nutritional status, or are non- or non-. According to the National Kidney Foundation, irrespective of diagnosis, the stage of the disease is based on the level of kidney function: Stage Description GFR(mL/min/1.73 m(2)) 1 Kidney damage with normal or decreased GFR 90 2 Kidney damage with mild decrease in GFR 60-89 3 Moderate decrease in GFR 30-59 4 Severe decrease in GFR 15-29 5 Kidney failure <15 (or dialysis) 4 Please check labs 2 days before follow up 5 Please check labs 2 days before follow up 6 Because ethnic data is not always readily available, this report includes an eGFR for both -Americans and non- Americans. The National Kidney Disease Education Program (NKDEP) does not endorse the use of the MDRD equation for patients that are not between the ages of 18 and 70, are , have extremes of body size, muscle mass, or nutritional status, or are non- or non-. According to the National Kidney Foundation, irrespective of diagnosis, the stage of the disease is based on the level of kidney function: Stage Description GFR(mL/min/1.73 m(2)) 1 Kidney damage with normal or decreased GFR 90 2 Kidney damage with mild decrease in GFR 60-89 3 Moderate decrease in GFR 30-59 4 Severe decrease in GFR 15-29 5 Kidney failure <15 (or dialysis) 7 ADDITIONAL INFORMATION This test was developed and its performance characteristics determined by [facility] in a manner consistent with CLIA requirements. This test has not been cleared or approved by the U.S. Food and Drug Administration. 8 ADDITIONAL INFORMATION Testing performed by Inductively Coupled Plasma-Mass Spectrometry (ICP-MS). This test was developed and its performance characteristics determined by [facility] in a manner consistent with CLIA requirements. This test has not been cleared or approved by the U.S. Food and Drug Administration. 9 ADDITIONAL INFORMATION This test was developed and its performance characteristics determined by [facility] in a manner consistent with CLIA requirements. This test has not been cleared or approved by the U.S. Food and Drug Administration. 10 ADDITIONAL INFORMATION This test was developed and its performance characteristics determined by [facility] in a manner consistent with CLIA requirements. This test has not been cleared or approved by the U.S. Food and Drug Administration. 11 Test Performed by: [facility] [address] [place] [address] 12 Because ethnic data is not always readily available, this report includes an eGFR for both -Americans and non- Americans. The National Kidney Disease Education Program (NKDEP) does not endorse the use of the MDRD equation for patients that are not between the ages of 18 and 70, are , have extremes of body size, muscle mass, or nutritional status, or are non- or non-. According to the National Kidney Foundation, irrespective of diagnosis, the stage of the disease is based on the level of kidney function: Stage Description GFR(mL/min/1.73 m(2)) 1 Kidney damage with normal or decreased GFR 90 2 Kidney damage with mild decrease in GFR 60-89 3 Moderate decrease in GFR 30-59 4 Severe decrease in GFR 15-29 5 Kidney failure <15 (or dialysis) 13 Please check labs 2 days before follow up 14 Please check labs 2 days before follow up 15 Because ethnic data is not always readily available, this report includes an eGFR for both -Americans and non- Americans. The National Kidney Disease Education Program (NKDEP) does not endorse the use of the MDRD equation for patients that are not between the ages of 18 and 70, are , have extremes of body size, muscle mass, or nutritional status, or are non- or non-. According to the National Kidney Foundation, irrespective of diagnosis, the stage of the disease is based on the level of kidney function: Stage Description GFR(mL/min/1.73 m(2)) 1 Kidney damage with normal or decreased GFR 90 2 Kidney damage with mild decrease in GFR 60-89 3 Moderate decrease in GFR 30-59 4 Severe decrease in GFR 15-29 5 Kidney failure <15 (or dialysis) 16 Please check labs 2 days before follow up 17 Acute inflammation: >10.00 18 Please check labs this week 19 Because ethnic data is not always readily available, this report includes an eGFR for both -Americans and non- Americans. The National Kidney Disease Education Program (NKDEP) does not endorse the use of the MDRD equation for patients that are not between the ages of 18 and 70, are , have extremes of body size, muscle mass, or nutritional status, or are non- or non-. According to the National Kidney Foundation, irrespective of diagnosis, the stage of the disease is based on the level of kidney function: Stage Description GFR(mL/min/1.73 m(2)) 1 Kidney damage with normal or decreased GFR 90 2 Kidney damage with mild decrease in GFR 60-89 3 Moderate decrease in GFR 30-59 4 Severe decrease in GFR 15-29 5 Kidney failure <15 (or dialysis) 20 ADDITIONAL INFORMATION This test was developed and its performance characteristics determined by [facility] in a manner consistent with CLIA requirements. This test has not been cleared or approved by the U.S. Food and Drug Administration. Test Performed by: [facility] [employer] - [address] [address] 21 REFERENCE VALUE <1.0 (Negative) 22 REFERENCE VALUE <1.0 (Negative) Test Performed by: [facility] - [address] [address] 23 ADDITIONAL INFORMATION This test was developed and its performance characteristics determined by [facility] in a manner consistent with CLIA requirements. This test has not been cleared or approved by the U.S. Food and Drug Administration. 24 ADDITIONAL INFORMATION This test was developed and its performance characteristics determined by [facility] in a manner consistent with CLIA requirements. This test has not been cleared or approved by the U.S. Food and Drug Administration. 25 ADDITIONAL INFORMATION This test was developed and its performance characteristics determined by [facility] in a manner consistent with CLIA requirements. This test has not been cleared or approved by the U.S. Food and Drug Administration. Test Performed by: [place] [address] 26 Negative for cANCA and pANCA patterns by immunofluorescence. ADDITIONAL INFORMATION This test was developed and its performance characteristics determined by [facility] in a manner consistent with CLIA requirements. This test has not been cleared or approved by the U.S. Food and Drug Administration. Test Performed by: [facility] [place] [address] 27 Acute inflammation: >10.00 28 REFERENCE VALUE <4.0 (Negative) Test Performed by: [place] [address] 29 Negative serology. Celiac disease unlikely. However, approximately 10% of patients with celiac disease are seronegative. Also, patients who are already adhering to a gluten-free diet may be seronegative. If celiac disease is highly clinically suspected, consider HLA-DQ typing. Test Performed by: [place] [address] 30 RESULT: 01:02,01:02 REFERENCE VALUE Not Applicable 31 RESULT: 06:02,06:04 DQ Serologic Equivalent: 6,6 REFERENCE VALUE Not Applicable 32 The absence of HLA celiac permissive genes would make the presence of celiac disease unlikely. ADDITIONAL INFORMATION Method: Molecular typing of HLA antigens performed using reverse SSOP and/or SSP methods, reported as serological equivalents and low to medium resolution molecular values. Performing Laboratory CLIA# [id number] Test Performed by: [place] [address] 33 REFERENCE VALUE Not Applicable 34 HLA-B27 antigen was detected. Approximately 8% of the normal population carries the HLA-B27 antigen. HLA-B27 is present in approximately 89% of patients with ankylosing spondylitis, 79% of patients with Linda's syndrome and 42% of patients with juvenile rheumatoid arthritis. However, lacking other data, it is not diagnostic for these disorders. This test does not differentiate B27 alleles. i.e. B*27:05, B*27:06, etc. ADDITIONAL INFORMATION Method: Flow Cytometry Performing Laboratory CLIA# [id number] Test Performed by: [place] [address] 35 Test Performed by: [place] [address] 36 Normal values may vary with age, season and geographic area. Titers above upper limits may be indicative of infection, however only a two dilution rise in titer is required to be considered significant. ASO titer will usually rise above upper limits within one week of exposure, increase to peak levels at 3-5 weeks and return to baseline level at 6-12 twelve months. 37 Because ethnic data is not always readily available, this report includes an eGFR for both -Americans and non- Americans. The National Kidney Disease Education Program (NKDEP) does not endorse the use of the MDRD equation for patients that are not between the ages of 18 and 70, are , have extremes of body size, muscle mass, or nutritional status, or are non- or non-. According to the National Kidney Foundation, irrespective of diagnosis, the stage of the disease is based on the level of kidney function: Stage Description GFR(mL/min/1.73 m(2)) 1 Kidney damage with normal or decreased GFR 90 2 Kidney damage with mild decrease in GFR 60-89 3 Moderate decrease in GFR 30-59 4 Severe decrease in GFR 15-29 5 Kidney failure <15 (or dialysis) 38 REFERENCE VALUE <15.0 (Negative) 39 REFERENCE VALUE <15.0 (Negative) Test Performed by: [facility] [employer] - [facility] [address] [place] [address] 40 REFERENCE VALUE <15.0 (Negative) 41 REFERENCE VALUE <15.0 (Negative) Test Performed by: [facility] - [address] [address] 42 Test Performed by: [facility] - [address] [address] 43 Desirable <150 Borderline high 150-199 High 200-499 Very High >500 44 Desirable <200 Borderline high 200-239 High >239 45 Low <40 Desirable: 40-60 High: >60 46 Desirable: <100 mg/dL Near Optimal: 100-129 mg/dL Borderline High: 130-159 mg/dL High: 160-189 mg/dL Very High: >189 mg/dL 47 Normal Range 180 to 914 Indeterminate Range 145 to 180 Deficient Range <145 48 FASTING 49 FASTING 50 No bands detected 51 No bands detected 52 Specific serologic response to B. burgdorferi infection is not detected, but cannot rule out early infection during which low or undetectable antibody levels to B. burgdorferi may be present. If clinically indicated, a new serum specimen should be submitted in 7-14 days. ADDITIONAL INFORMATION CDC criteria require >=5 bands for IgG or >=2 bands for IgM for the Immunoblot to be considered positive. Bands (e.g.,p41) may be detected in patients without Lyme disease, and patterns not meeting the CDC criteria should be interpreted with caution. Immunoblot should be ordered only on specimens that are positive or equivocal by a FDA-licensed Lyme disease antibody screening test (e.g., EIA). Test Performed by: [facility] - [address] [address] 53 Serologic response to B. burgdorferi infection is not detected, but cannot rule out early infection during which low or undetectable antibody levels to B. burgdorferi may be present. If clinically indicated, a new serum specimen should be submitted in 7-14 days. Test Performed by: [facility] - [address] [address] 54 REFERENCE VALUE <=1.0 (Negative) 55 REFERENCE VALUE <20.0 (Negative) 56 Tests for antibodies to dsDNA and SHANELLE antigens are not performed automatically unless the SALTY result is > or= 3.0 U. Studies performed at [facility] indicate that positive SALTY results <3.0 U are rarely accompanied by positive second order tests. Test Performed by: [facility] - [address] [address] 57 FASTING 58 Acute inflammation: >10.00 59 Acute inflammation: >10.00 In accordance with FDA guideline, CRP is now reported in mg/L, previous reporting was in mg/dL. 60 AM 8.7-22.4 PM <10 61 The above SHANELLE screen is designed for the detection of antibodies to extractable nuclear antigen (SHANELLE) in human serum. It is a combination test for the detection of antibodies to COMPUTER ENGINEERING TECHNICIAN, Sm, SS-A (Ro), and SS-B (La) nuclear antigens. 62 Because ethnic data is not always readily available, this report includes an eGFR for both -Americans and non- Americans. The National Kidney Disease Education Program (NKDEP) does not endorse the use of the MDRD equation for patients that are not between the ages of 18 and 70, are , have extremes of body size, muscle mass, or nutritional status, or are non- or non-. According to the National Kidney Foundation, irrespective of diagnosis, the stage of the disease is based on the level of kidney function: Stage Description GFR(mL/min/1.73 m(2)) 1 Kidney damage with normal or decreased GFR 90 2 Kidney damage with mild decrease in GFR 60-89 3 Moderate decrease in GFR 30-59 4 Severe decrease in GFR 15-29 5 Kidney failure <15 (or dialysis) Procedures Date Code Description Status 08/01/2015 17714 Inject/Drain Joint/Bursa Major W/O US Completed 04/24/2014 15448 Polysomnography Sleep Staging 4+ Parameters W/Cpap Completed 06/13/2013 97788 ECHO Transthorasic Realtime 2D W Doppler & Color Flow Hosp Completed 05/22/2013 85233 ECHO Transthorasic Realtime 2D W Doppler & Color Flow Hosp Completed 12/21/2012 39760 EKG Tracing & Interpretation Completed 12/17/2012 65865 ECHO Transthoracic, Real-Time 2D With Doppler And Color Completed Flow 08/30/2010 05489 Arthroscopy,Knee,Meniscectomy Media & Lateral Completed 08/30/2010 30640 Arthroscopy,Knee,Meniscectomy Media & Lateral Completed Encounters Type Date Location Provider Dx Diagnosis Office Visit 12/07/2018 Pulmonology And Deb Hero, G47.33 Obstructive sleep 3:00p [facility] (adult) [facility] (pediatric) R53.83 Other fatigue Office Visit 11/08/2018 Neurohospitalist Osman 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 inflammatory spondylopathy, site unspecified M54.5 Low back pain M51.36 Other intervertebral disc degeneration, lumbar region G47.30 Sleep apnea, unspecified Office Visit 09/01/2018 3:40p [facility] Internal Tolu Destiney, J01.90 Acute sinusitis, Medicine DIRECT SUPPORT STAFF unspecified K12.0 Recurrent oral aphthae Office Visit 05/11/2018 Rheumatology Viktoriya Rangel6.Rigo Unspecified 10:00a Services [facility] Villarreal M.D. inflammatory spondylopathy, site unspecified M54.5 Low back pain M51.36 Other intervertebral disc degeneration, lumbar region Z79.899 Other fdc (current) drug therapy Z23 Encounter for immunization Office Visit 03/02/2018 Héctor Brewer M46.90 Unspecified 10:15a Neurologic Gloria Mon inflammatory Services Of [facility] spondylopathy, site unspecified M54.5 Low back pain R53.82 Chronic fatigue, unspecified D32.0 Benign neoplasm of cerebral meninges Office Visit 02/10/2018 Rheumatology Viktoriya Rangel6.90 Unspecified 10:00a [facility] Villarreal M.D. inflammatory spondylopathy, site unspecified M54.5 Low back pain Z79.899 Other research study assistant (current) drug therapy R53.82 Chronic fatigue, unspecified Z77.011 Contact with and (suspected) exposure to lead N18.9 Chronic kidney disease, unspecified Office Visit 11/05/2017 Rheumatology Viktoriya M46.90 Unspecified 11:20a Services [facility] Villarreal M.D. inflammatory spondylopathy, site unspecified M54.5 Low back pain Z79.899 Other research study assistant (current) drug therapy R53.82 Chronic fatigue, unspecified Office Visit 11/02/2017 Héctor Brewer M46.90 Unspecified 4:00p Neurologic Gloria Mon inflammatory Services [facility] spondylopathy, site unspecified M54.5 Low back pain R53.82 Chronic fatigue, unspecified R42 Dizziness and giddiness Office Visit 09/07/2017 Rheumatology Viktoriya M46.90 Unspecified 11:20a Services [facility] Villarreal M.D. inflammatory spondylopathy, site unspecified Z79.899 Other fdc (current) drug therapy M51.36 Other intervertebral disc degeneration, lumbar region M54.5 Low back pain Office 09/03/2017 Neurohospitalist Osman R53.82 Chronic Visit 9:15a Clinic [facility] Mon fatigue, unspecified R42 Dizziness and giddiness Office Visit 06/04/2017 Rheumatology Viktoriya M46.90 Unspecified 4:00p [facility] Villarreal M.D. inflammatory spondylopathy, site unspecified Z79.899 Other fdc (current) drug therapy M51.36 Other intervertebral disc degeneration, lumbar region M54.5 Low back pain Office Visit 05/25/2017 4:00p [facility] Internal Tolu Cabello NP G89.29 Other chronic Medicine pain G47.30 Sleep apnea, unspecified Office Visit 05/06/2017 2:00p Rheumatology Viktoriya Villarreal G89.29 Other chronic Services Of [facility] Castro pain L40.9 Psoriasis, unspecified M54.5 Low back pain M54.6 Pain in thoracic spine M54.2 Cervicalgia I26.99 Other pulmonary embolism without acute cor pulmonale N19 Unspecified kidney failure Office Visit 04/29/2017 2:00p [facility] Dermatology Colt Romeo MD L40.0 Psoriasis vulgaris B35.1 Tinea unguium B35.3 Tinea pedis L21.8 Other seborrheic dermatitis D22.5 Melanocytic nevi of trunk Office Visit 03/23/2017 11:20a [facility] Internal James Hearn G89.4 Chronic pain Medicine - Gloria Goins syndrome [place] R53.83 Other fatigue Z13.220 Encounter for screening for lipoid disorders F34.1 Dysthymic disorder R21 Rash and other nonspecific skin eruption Office 09/06/2015 Orthopedic Felicia S63.642A Sprain of Visit 11:30a Services Of [facility] Falk metacarpophalangeal C.M.A. joint of left thumb, init Office 08/01/2015 Orthopedic Jana Chung, S83.412A Sprain of medial Visit 9:45a Services Of [facility] collateral ligament of C.M.A. 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 Kidney Hospitalists 591 Hydronephrosis 584.9 Acute Kidney Failure, Unspecified V12.59 History Personal Circulatory Diseases Other Office Visit 05/22/2013 1:47p [facility] Scotty Amaya 415.19 Pulmonary Assoc,pc Emma Abarca, Embolism And Hospitalists M.D. 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 Arm Unspec Office Visit 07/31/2010 2:00p DO Not Use Ortho Juan Saenz, 836.0 Dislocation Knee AT [facility] Gloria Tear Of Medial Cartilage Or Meniscus Sydnie Plan of Treatment Future Appointment(s):12/16/2019 9:15 am - Viktoria Davis DNP, RN, MURAL PAINTER-BC at Pul[facility]ology [facility]02/28/2019 8:15 am - Osman Mon M.D. at [facility] [facility]02/04/2019 9:20 am - Viktoriya Villarreal M.D. at Rheumatology Services [facility]12/20/2018 - GUANAKITO Fontenot-CM50.30 Other cervical disc degeneration, unsp cervical regionNew Therapy:Physical TherapyFollow up:As needed
--- OUTSIDE RECORDS SUMMARY | 2018-12-25 04:33 | XMS REPORT | Continuity of Care Document ---
:1975 External Reference #:[id number] Author Name Celeste Peter Care Team Providers Name Role Phone James Goins III, MD Primary Care Physician Unavailable Payers Date Identification Numbers Payment Provider Subscriber Expires: 2017 Policy Number: [id number] Juan Qiu Group Number: [id number] [address] PayID: [id number] [place] [address] Effective: 2012 Policy Number: [id number] [employer] Marivel Adler Expires: 2016 Group Number: [id number] [address] PayID: [id number] [place] [address] Expires: 2016 Policy Number: [id number] Elio Qiu Onset: 2015 Group Name: [id number] [address] PayID: [id number] [place] [address] Expires: 2016 PayID: [id number] BS Rj Qiu [address] [address] E[place]L Hager [address] Effective: 2017 Policy Number: [id number] BS Rj Qiu Expires: 2017 PayID: [id number] [address] [address] [place] [address] Effective: 2017 Policy Number: [id number] BS Rj Qiu PayID: [id number] [address] [address] [place] [address] Advance Directives Description No Information Available Problems [...] Sex Unknown Marital Status Lives With 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 Tobacco Use Start: Unknown End: Patient is a former quit 2007 Unknown smoker Smoking Status Reviewed: 12/07/18 Patient is a former quit 2008 smoker Exercise Exercises sporadically Type/Frequency Allergies, Adverse Reactions, Alerts Active Allergies Reaction Severity Comments Date Buspirone palpitations 03/23/2017 Tramadol ? change in mental status 03/23/2017 Medications Active Medications SIG Qnty Indications Ordering Date Provider Metaxalone Take one 30tabs Z79.899 Vkitoriya Villarreal, 09/06/2018 800mg Tablets tablet/capsule by M.D. [...] Viktoriya Villarreal, 05/11/2018 - 400mg tablet/capsule by M.Britt 09/06/2018 Tablets mouth at bedtime. as needed [...] 60g Unknown - day as needed 03/23/2017 [id number]/GM Cream Doxycycline Hyclate twice a day by [...] Code Status Date Vaccine Reaction Lot # 74317 Given 05/11/2018 Influenza Virus Vaccine, no reaction noted [id number] Quadrivalent, Split, Preservative Free Vital Signs Date Vital Result Comment 12/07/2018 2:35pm Height 72 inches 6'0" Weight [...] Result H/L Range Note Laboratory test 11/08/2018 [facility] Acth 33 pg/mL [address] [place] [address] [phone] Basic Metabolic Panel 11/08/2018 [facility] Sodium 137 mmol/L N 135-[address] [place] [address] [phone] Potassium 4.3 mmol/L N 3.5-5.0 Chloride 107 mmol/L N 101-111 Co2 Carbon Dioxide 23 mmol/L N 22-32 Anion Gap 7 mmol/L N 2-11 Glucose 112 mg/dL High 70-100 Blood Urea Nitrogen 19 mg/dL N 6-24 Creatinine 1.18 mg/dL High 0.67-1.17 BUN/Creatinine Ratio 16.1 N 8-20 Calcium 9.4 mg/dL N 8.6-10.3 Egfr Non- 66.8 >60 Egfr 80.8 >60 2 Basic Metabolic Panel 09/30/2018 [facility] Sodium 137 mmol/L N 135-[address] [place] [address] [phone] Potassium 4.1 mmol/L N 3.5-5.0 Chloride 105 mmol/L N 101-111 Co2 Carbon Dioxide 26 mmol/L N 22-32 Anion Gap 6 mmol/L N 2-11 Glucose 85 mg/dL N 70-100 Blood Urea Nitrogen 23 mg/dL N 6-24 Creatinine 1.27 mg/dL High 0.67-1.17 BUN/Creatinine Ratio 18.1 N 8-20 Calcium 9.5 mg/dL N 8.6-10.3 Egfr Non- 61.3 >60 Egfr 74.2 >60 3 Laboratory test 09/06/2018 [facility] Erythrocyte Sed 20 mm/Hr High 0-14 [address] [place] [address] [phone] C Reactive Protein 8.02 mg/L High <8.01 5 CBC Auto Diff 09/06/2018 [facility] White Blood 8.9 10^3/uL N 3.5-10.[address] [place] [address] [phone] Red Blood Count 5.48 10^6/uL High 4.00-5.40 [...] Cells % 0 Comp Metabolic Panel 09/06/2018 [facility] Sodium 138 mmol/L N 135-[address] [place] [address] [phone] Potassium 4.5 mmol/L N 3.5-5.0 Chloride 107 [...] Egfr 74.9 >60 6 Urinalysis Profile 09/06/2018 [facility] Urine Color Yellow [address] [place] [address] [phone] Urine Appearance Clear Urine Specific [place] 1.035 High 1.010-1.030 Urine pH 5.0 N [...] Present Abnormal Absent Heavy Metal Blool 03/01/2018 [facility] Arsenic <1 ng/mL 0- [address] [place] [address] [phone] Lead <1.0 g/dL 0.0-4.9 8 Mercury <1 ng/mL 0-9 9 Cadmium <0.2 ng/mL 0.0-4.[address] [place] [address] Guardian First Name VIKTORIYA Guardian Last Name MONET Home Phone UNK Venous/Capillary Heavy Metals Venous Patient Race Submitting Laboratory Phone [phone] Basic Metabolic Panel 03/01/2018 [facility] Sodium 138 mmol/L N 135-[address] [place] [address] [phone] Potassium 4.4 mmol/L N 3.5-5.0 Chloride 106 mmol/L N 101-111 Co2 Carbon Dioxide 25 mmol/L N 22-32 Anion Gap 7 mmol/L N 2-11 Glucose 96 mg/dL N 70-100 Blood Urea Nitrogen 14 mg/dL N 6-24 Creatinine 1.19 mg/dL High 0.67-1.17 BUN/Creatinine Ratio 11.8 N 8-20 Calcium 9.5 mg/dL N 8.6-10.3 Egfr Non- 66.4 >60 Egfr 80.4 >60 12 Laboratory test 02/08/2018 [facility] C Reactive 1.73 mg/L N < 8.[address] [place] [address] [phone] Erythrocyte Sed Rate 13 mm/Hr N 0-14 14 CBC Auto Diff 02/08/2018 [facility] White Blood 7.4 10^3/uL N 3.5-10.[address] [place] [address] [phone] Red Blood Count 5.37 10^6/uL N 4.00-5.40 [...] Cells % 0.1 Comp Metabolic Panel 02/08/2018 [facility] Sodium 138 mmol/L N 135-[address] [place] [address] [phone] Potassium 4.2 mmol/L N 3.5-5.0 Chloride 105 [...] Egfr 77.3 >60 15 Laboratory test 02/08/2018 [facility] TSH (Thyroid 2.22 mcIU/mL N 0.34-5.60 [address] [place] [place] [address] [phone] Laboratory test 09/07/2017 [facility] C Reactive < 1.00 mg/L N < 5.[address] [place] [address] [phone] Erythrocyte Sed Rate 10 mm/Hr N 0-14 18 CBC Auto Diff 09/07/2017 [facility] White Blood 7.6 10^3/uL N 3.5-10.[address] [place] [address] [phone] Red Blood Count 5.08 10^6/uL N 4.0-5.4 [...] Cells % 0.2 Comp Metabolic Panel 09/07/2017 [facility] Sodium 137 mmol/L N 133-[address] [place] [address] [phone] Potassium 4.4 mmol/L N 3.5-5.0 Chloride 105 [...] 91.6 >60 19 Vitamin D 1,25 05/06/2017 [facility] Vitamin D Total 21.4 ng/mL N 20-50 And Vitamin D,[address] 25(Oh) [place] [address] [phone] Vitamin D, 1,25 Dihydroxy 34 pg/mL N 18-64 20 Laboratory test 05/06/2017 [facility] Ferritin 106.5 ng/mL N 24-[address] [place] [address] [phone] Ssa/SSB Abs Igg 05/06/2017 [facility] SS-A/Ro <0.2 U N [address] [place] [address] [phone] SS-B/La Antibody <0.2 U N 22 Tick-Borne Panel 05/06/2017 [facility] Babesia Negative N Negative PCR Blood [address] [place] [address] [phone] Babesia ducani Negative N Negative Babesia divergens/Mo-1 Negative N Negative 23 Anaplasma phagocytophilum Negative N Negative Ehrlichia chaffeensis Negative N Negative Ehrlichia ewingii/canis Negative N Negative Ehrlichia muris-like Negative N Negative 24 B. miyamotoi PCR, B Negative N Negative 25 Anca AB Ser If 05/06/2017 [facility] C-Anca Negative N Negative [address] [place] [address] [phone] P-Anca Negative N Negative 26 Laboratory test 05/06/2017 [facility] C Reactive < 1.00 N < 5.00 [address] Protein mg/[place] [address] [phone] Erythrocyte Sed Rate 6 mm/Hr N 0-14 Celiac Panel 05/06/2017 [facility] Tissue Transglutaminase <1.2 U/mL N [address] [place] [address] [phone] Immunoglobulin A 177 mg/dL N 61 - 356 Celiac Interpretation See Comment N 29 Celiac Hla 05/06/2017 [facility] Hla-Dqa1 SEE BELOW N [address] [place] [address] [phone] Hla-DQB1 SEE BELOW N 31 Celiac Gene Pairs Present? No N Celiac Gene Interpretation See Comment N 32 Hla B27 05/06/2017 [facility] Hla B27 Positive N [address] [place] [address] [phone] Hla B27 Interp See Comment N 34 Laboratory test 05/06/2017 [facility] Angiotensin 44 U/L N 8 - 53 [address] [place] [address] [phone] Aso (Antistreptolysin O) Titer Negative IU/mL N <200 Iu/mL 36 Thyroperoxidase AB 0.39 IU/mL N <9 Basic Metabolic Panel 05/06/2017 [facility] Sodium 139 mmol/L N 133-[address] [place] [address] [phone] Potassium 4.3 mmol/L N 3.5-5.0 Chloride 106 mmol/L N 101-111 Co2 Carbon Dioxide 28 mmol/L N 22-32 Anion Gap 5 mmol/L N 2-11 Glucose 100 mg/dL N 70-100 Blood Urea Nitrogen 21 mg/dL N 6-24 Creatinine 1.09 mg/dL N 0.67-1.17 BUN/Creatinine Ratio 19.3 N 8-20 Calcium 9.5 mg/dL N 8.6-10.3 Egfr Non- 73.8 N >60 Egfr 95.0 N >60 37 Cardiolipin 05/06/2017 [facility] Phospholipid Ab < 9.4 MPL N 38 Igg/Igm [address] IgM, [place] [address] [phone] Phospholipid Ab IgG < 9.4 GPL N 39 Laboratory test 05/06/2017 [facility] Creatine 61 U/L N 10- 223 finding 101 Kinase(CK) [place] [address] [phone] Beta 2 05/06/2017 [facility] Beta 2 <9.4 N 40 Glycoprotein I Abs 101 Glycoprotein IgG U/[place] [address] [phone] Beta 2 Glycoprotein IgM <9.4 U/mL N 41 Laboratory test 05/06/2017 [facility] Aldolase 4.5 U/L N <7.[address] [place] [address] [phone] Lipid Profile 03/23/2017 [facility] Triglycerides 96 mg/dL N 43 (Trig/Chol/HDL) [address] [place] [address] [phone] Cholesterol 178 mg/dL N 44 HDL Cholesterol 59.6 mg/dL N 45 LDL Cholesterol 99 mg/dL N 46 Vitamin B12 And 03/23/2017 [facility] Vitamin B12 384 pg/mL N 180-914 [address] [place] [address] [phone] Folic Acid (Folate) > 20.00 ng/mL N >3.99 48 Laboratory test 03/23/2017 [facility] TSH (Thyroid 3.06 mcIU/mL N 0.34-5.[address] Stim [place]) [place] [address] [phone] Lyme Western 03/23/2017 [facility] Lyme Disease Negative N Negative Blot [address] [facility] [place] [address] [phone] Lyme Disease IgG Bands Present No bands detecte <SEE NOTE> kDa N 50 Lyme Disease IgM Ab WB Negative N Negative Lyme Disease IgM Bands Present No bands detecte <SEE NOTE> kDa N 51 Lyme Disease Interpretation See Comment N 52 Laboratory test 03/23/2017 [facility] Lyme Disease Negative N Negative 53 finding [address] [facility] [place] [address] [phone] Connective 03/23/2017 [facility] Anti-Nuclear 0.4 U N 54 Tissue Panel [address] [place] [address] [phone] Cyclic Citrullinated Peptide <15.6 U N 55 Interpretation See Comment N 56 Laboratory test 03/23/2017 [facility] Erythrocyte Sed 5 mm/Hr N 0-14 [address] [place] [address] [phone] C Reactive Protein < 1.00 mg/L N < 5.00 58 CBC Auto Diff 03/23/2017 [facility] White Blood 7.8 10^3/uL N 3.5-10.[address] [place] [address] [phone] Red Blood Count 5.18 10^6/uL N 4.0-5.4 [...] % 0.1 N CBC Auto Diff 11/10/2013 [facility] White Blood 6.7 10^3/uL N 4.8-10.[address] [place] [address] [phone] Red Blood Count 4.94 10^6/uL N 4.0-5.4 [...] Cells % 0 N Laboratory test 11/10/2013 [facility] C Reactive 1.23 mg/L N < 5.00 [address] [place] [address] [phone] Erythrocyte Sed Rate 19 mm/Hr High 0-14 Cortisol 11.21 g/dL N 60 Free T4 0.76 ng/mL N 0.61-1.12 Salty (Anti-Nuclear AB) Screen Negative N Negative Shanelle Screen Negative N Negative 61 Comp Metabolic Panel 11/10/2013 [facility] Sodium 137 mmol/L N 133-[address] [place] [address] [phone] Potassium 4.3 mmol/L N 3.7-5.6 Chloride 103 [...] VALUE 7.2-63 (a.m. collection) Test Performed by: [facility] [address] [place] [address] 2 Because ethnic data is not always [...] developed and its performance characteristics determined by [facility] in a manner consistent with CLIA requirements. This test has not been cleared or approved by the U.S. Food and Drug Administration. 8 ADDITIONAL INFORMATION Testing performed by Inductively Coupled Plasma-Mass Spectrometry (ICP-MS). This test was developed and its performance characteristics determined by [facility] in a manner consistent with CLIA requirements. This test has not been cleared or approved by the U.S. Food and Drug Administration. 9 ADDITIONAL INFORMATION This test was developed and its performance characteristics determined by [facility] in a manner consistent with CLIA requirements. This test has not been cleared or approved by the U.S. Food and Drug Administration. 10 ADDITIONAL INFORMATION This test was developed and its performance characteristics determined by [facility] in a manner consistent with CLIA requirements. This test has not been cleared or approved by the U.S. Food and Drug Administration. 11 Test Performed by: [facility] [address] [place] [address] 12 Because ethnic data is not always [...] developed and its performance characteristics determined by [facility] in a manner consistent with CLIA requirements. This test has not been cleared or approved by the U.S. Food and Drug Administration. Test Performed by: [facility] - [address] [address] 21 REFERENCE VALUE <1.0 (Negative) 22 REFERENCE VALUE <1.0 (Negative) Test Performed by: [facility] - [address] [address] 23 ADDITIONAL INFORMATION This test was developed and its performance characteristics determined by [facility] in a manner consistent with CLIA requirements. This test has not been cleared or approved by the U.S. Food and Drug Administration. 24 ADDITIONAL INFORMATION This test was developed and its performance characteristics determined by [facility] in a manner consistent with CLIA requirements. This test has not been cleared or approved by the U.S. Food and Drug Administration. 25 ADDITIONAL INFORMATION This test was developed and its performance characteristics determined by [facility] in a manner consistent with CLIA requirements. This test has not been cleared or approved by the U.S. Food and Drug Administration. Test Performed by: [facility] [place] [address] 26 Negative for cANCA and pANCA patterns by immunofluorescence. ADDITIONAL INFORMATION This test was developed and its performance characteristics determined by [facility] in a manner consistent with CLIA requirements. This test has not been cleared or approved by the U.S. Food and Drug Administration. Test Performed by: [facility] [place] [address] 27 Acute inflammation: >10.00 28 REFERENCE VALUE <4.0 (Negative) Test Performed by: [place] [address] 29 Negative serology. Celiac disease unlikely. However, approximately 10% of patients with celiac disease are seronegative. Also, patients who are already adhering to a gluten-free diet may be seronegative. If celiac disease is highly clinically suspected, consider HLA-DQ typing. Test Performed by: [facility] [place] [id number] 30 RESULT: 01:02,01:02 REFERENCE VALUE Not Applicable 31 RESULT: 06:02,06:04 DQ Serologic Equivalent: 6,6 REFERENCE VALUE Not Applicable 32 The absence of HLA celiac permissive genes would make the presence of celiac disease unlikely. ADDITIONAL INFORMATION Method: Molecular typing of HLA antigens performed using reverse SSOP and/or SSP methods, reported as serological equivalents and low to medium resolution molecular values. Performing Laboratory CLIA# [id number] Test Performed by: [place] [address] 33 REFERENCE VALUE Not Applicable 34 HLA-B27 [...] INFORMATION Method: Flow Cytometry Performing Laboratory CLIA# [id number] Test Performed by: [place] [address] 35 Test Performed by: [place] [address] 36 Normal values may vary with age, [...] REFERENCE VALUE <15.0 (Negative) Test Performed by: [address] [address] 40 REFERENCE VALUE <15.0 (Negative) 41 REFERENCE VALUE <15.0 (Negative) Test Performed by: [facility] [address] [place] [address] 42 Test Performed by: [address] [address] 43 Desirable <150 Borderline high 150-199 High [...] screening test (e.g., EIA). Test Performed by: [facility] - [address] [address] 53 Serologic response to B. burgdorferi infection is not detected, but cannot rule out early infection during which low or undetectable antibody levels to B. burgdorferi may be present. If clinically indicated, a new serum specimen should be submitted in 7-14 days. Test Performed by: [facility] - [address] [address] 54 REFERENCE VALUE <=1.0 (Negative) 55 REFERENCE VALUE <20.0 (Negative) 56 Tests for antibodies to dsDNA and SHANELLE antigens are not performed automatically unless the SALTY result is > or= 3.0 U. Studies performed at [facility] indicate that positive SALTY results <3.0 U are rarely accompanied by positive second order tests. Test Performed by: [facility] - [address] [address] 57 FASTING 58 Acute inflammation: >10.00 59 Acute inflammation: >10.00 In accordance with FDA guideline, CRP is now reported in mg/L, previous reporting was in mg/dL. 60 AM 8.7-22.4 PM <10 61 The above SHANELLE screen is designed for the detection of antibodies to extractable nuclear antigen (SHANELLE) in human serum. It is a combination test for the detection of antibodies to BEEF SELECTOR, Sm, SS-A (Ro), and SS-B (La) nuclear [...] dialysis) Procedures Date Code Description Status 08/01/2015 09114 Inject/Drain Joint/Bursa Major W/O US Completed 04/24/2014 04334 Polysomnography Sleep Staging 4+ Parameters W/Cpap Completed 06/13/2013 21779 ECHO Transthorasic Realtime 2D W Doppler & Color Flow Hosp Completed 05/22/2013 49030 ECHO Transthorasic Realtime 2D W Doppler & Color Flow Hosp Completed 12/21/2012 93840 EKG Tracing & Interpretation Completed 12/17/2012 36377 ECHO Transthoracic, Real-Time 2D With Doppler And Color Completed Flow 08/30/2010 19736 Arthroscopy,Knee,Meniscectomy Media & Lateral Completed 08/30/2010 95179 Arthroscopy,Knee,Meniscectomy Media & Lateral Completed Encounters Type Date Location Provider Dx Diagnosis Office Visit 11/08/2018 [facility] Mon, 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 inflammatory spondylopathy, site unspecified M54.5 Low back pain M51.36 Other intervertebral disc degeneration, lumbar region G47.30 Sleep apnea, unspecified Office Visit 09/01/2018 3:40p [facility] Internal Tolu Cabello, J01.90 Acute sinusitis, Medicine [employer] unspecified K12.0 Recurrent oral aphthae Office Visit 05/11/2018 Rheumatology Viktoriya Rangel6Sebastian Unspecified 10:00a [facility]ar[facility] M.D. inflammatory spondylopathy, site unspecified M54.5 Low back pain M51.36 Other intervertebral disc degeneration, lumbar region Z79.899 Other penitentiary (current) drug therapy Z23 Encounter for immunization Office Visit 03/02/2018 Héctor Rangel6Sebastian Unspecified 10:15a Rd Mon M.D. inflammatory [facility] spondylopathy, site unspecified M54.5 Low back pain R53.82 Chronic fatigue, unspecified D32.0 Benign neoplasm of cerebral meninges Office Visit 02/10/2018 Rheumatology Viktoriya Rangel6Sebastian Unspecified 10:00a [facility] Villarreal M.D. inflammatory spondylopathy, site unspecified M54.5 Low back pain Z79.899 Other penitentiary (current) drug therapy R53.82 Chronic fatigue, unspecified Z77.011 Contact with and (suspected) exposure to lead N18.9 Chronic kidney disease, unspecified Office Visit 11/05/2017 Rheumatology Viktoriya Rangel6Sebastian Unspecified 11:20a [facility] M.D. inflammatory spondylopathy, site unspecified M54.5 Low back pain Z79.899 Other export packer (current) drug therapy R53.82 Chronic fatigue, unspecified Office Visit 11/02/2017 Héctor Rangel6Sebastian Unspecified 4:00p Rd Mon M.D. inflammatory Services Of [facility] spondylopathy, site unspecified M54.5 Low back pain R53.82 Chronic fatigue, unspecified R42 Dizziness and giddiness Office Visit 09/07/2017 Rheumatology Viktoriya M46.90 Unspecified 11:20a [facility] Villarreal M.D. inflammatory spondylopathy, site unspecified Z79.899 Other export packer (current) drug therapy M51.36 Other intervertebral disc degeneration, lumbar region M54.5 Low back pain Office 09/03/2017 [facility]man R53.82 Chronic Visit 9:15a [facility] Mon fatigue, unspecified R42 Dizziness and giddiness Office Visit 06/04/2017 Rheumatology Viktoriya M46.90 Unspecified 4:00p [facility]ar[facility] M.D. inflammatory spondylopathy, site unspecified Z79.899 Other export packer (current) drug therapy M51.36 Other intervertebral disc degeneration, lumbar region M54.5 Low back pain Office Visit 05/25/2017 4:00p [facility] Internal Tolu Cabello NP G89.29 Other chronic Medicine pain G47.30 Sleep apnea, unspecified Office Visit 05/06/2017 2:00p Rheumatology Viktoriya Villarreal G89.29 Other chronic Services Of [facility] Gloria pain L40.9 Psoriasis, unspecified M54.5 Low back pain M54.6 Pain in thoracic spine M54.2 Cervicalgia I26.99 Other pulmonary embolism without acute cor pulmonale N19 Unspecified kidney failure Office Visit 04/29/2017 2:00p [facility] Dermatology Colt Romeo MD L40.0 Psoriasis vulgaris B35.1 Tinea unguium B35.3 Tinea pedis L21.8 Other seborrheic dermatitis D22.5 Melanocytic nevi of trunk Office Visit 03/23/2017 11:20a [facility] Internal James Hearn G89.4 Chronic pain Medicine [...] Vessel Distal Lower Office Visit 07/06/2013 2:11p [facility] Kayli Bell, 592.0 [facility],reza Raines [facility] Hospitalists 591 Hydronephrosis 584.9 Acute Kidney Failure, Unspecified V12.59 History Personal Circulatory Diseases Other Office Visit 07/05/2013 2:10p [facility] Kenyatta 592.0 [facility],reza Ghotra M.D. Kidney Hospitalists 591 Hydronephrosis 584.9 Acute Kidney Failure, Unspecified V12.59 History Personal Circulatory Diseases Other Office Visit 05/22/2013 1:47p [facility] Scotty Amaya 415.19 Pulmonary Assoc,pc Emma Abarca, Embolism And Hospitalists M.D. 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 Arm Unspec Office Visit 07/31/2010 2:00p DO Not Use Ortho Juan Saenz, 836.0 Dislocation Knee AT [facility] [facility] Tear Of Medial Cartilage Or Meniscus [facility] Plan of Treatment Future Appointment(s):12/16/2019 9:15 am - Viktoria Davis DNP, RN, CUSTOMER ACCOUNT ADMINISTRATOR-BC at [facility]02/28/2019 8:15 am - Osman Mon M.D. at [facility]02/04/2019 9:20 am - Viktoriya Villarreal M.D. at [facility]12/07/2018 - Deb Monahan MDG47.33 Obstructive sleep apnea (adult) (pediatric)R53.83 Other fatigue
[2018-12-25 04:47] LABS: ABS Eosinophils 0.5 10^3/ul (0-0.6); ABS Lymphocytes 2.3 10^3/ul (1.0-4.8); ABS Monocytes 0.7 10^3/ul (0-0.8); ABS Neutrophils 3.4 10^3/ul (1.5-7.7); Eosinophil % 7.8 %; Hematocrit 44 % (42-52); Lymphocyte % 32.8 %; Mean Corpuscular HGB Conc 34 g/dL (31-36); Mean Corpuscular Hemoglobin 29 pg (27-31); Mean Corpuscular Volume 87 fL (80-94); Mean Platelet Volume 6.9 fL (7.4-10.4); Nucleated Red Blood Cells % 0.1; Platelet Count 277 10^3/uL (150-450); Red Blood Count 5.13 10^6 /uL (4.18-5.48); Red Cell Distribution Width 13 % (10.5-15); White Blood Count 6.9 10^3/uL (3.5-10.8)
[2018-12-25 05:07] LABS: Albumin 4.2 g/dL (3.2-5.2); Albumin/Globulin Ratio 1.8 (1-3); BUN/Creatinine Ratio 17.6 (8-20); C Reactive Protein 1.83 mg/L (<8.01); Calcium 9.1 mg/dL (8.6-10.3); EGFR African American 75.6 (>60); EGFR Non-African American 62.5 (>60); Globulin 2.3 g/dL (2-4); Magnesium 2.1 mg/dL (1.9-2.7); Potassium 4.2 mmol/L (3.5-5.0); Total Bilirubin 0.3 mg/dL (0.2-1.0); Total Protein 6.5 g/dL (6.4-8.9)
[2018-12-25 06:29] VITALS: BP 141/77
== END 2018-12-25 06:30 | disposition home or self-care (01) ==
LOC: ED 04:03
DX: K80.20 Calculus of gallbladder without cholecystitis without obstruction (principal); F90.9 Attention-deficit hyperactivity disorder, unspecified type; Z87.442 Personal history of urinary calculi; Z86.718 Personal history of other venous thrombosis and embolism; F31.9 Bipolar disorder, unspecified; Z86.711 Personal history of pulmonary embolism; G47.30 Sleep apnea, unspecified
CPT/HCPCS: 36415; 80053; 82150; 83690; 83735; 85025; 86140; 96361; 96374; 96375; 99282; J2270; J2765

== ENCOUNTER 2020-05-17 07:31 | Observation (INO) ==
[2020-05-17] MEDS ORDERED: NS 0.9% 1000 ml BAG 1,000 ML IV ONE (07:54)
[2020-05-17] MEDS ORDERED: Ondansetron 4 mg VIAL 2 MG/ML 2 ml VIAL IV ONE (07:54)
[2020-05-17] MEDS ORDERED: Morphine 4 MG/ML VIAL (1 ml) IV ONE (07:59)
[2020-05-17 08:19] LABS: ABS Eosinophils 0.2 10^3/ul (0-0.6); ABS Lymphocytes 1.2 10^3/ul (1.0-4.8); ABS Monocytes 0.5 10^3/ul (0-0.8); ABS Neutrophils 7.2 10^3/ul (1.5-7.7); Eosinophil % 2.1 %; Hematocrit 40 % (42-52); Lymphocyte % 12.8 %; Mean Corpuscular HGB Conc 35 g/dL (31-36); Mean Corpuscular Hemoglobin 30 pg (27-31); Mean Corpuscular Volume 86 fL (80-94); Mean Platelet Volume 7.3 fL (7.4-10.4); Platelet Count 275 10^3/uL (150-450); Red Cell Distribution Width 12 % (10-15); White Blood Count 9.1 10^3/uL (3.5-10.8)
[2020-05-17 08:33] LABS: Albumin 4.3 g/dL (3.2-5.2); Albumin/Globulin Ratio 1.9 (1-3); BUN/Creatinine Ratio 20.7 (8-20); C Reactive Protein 2.9 mg/L (<8.01); Calcium 9.1 mg/dL (8.6-10.3); EGFR Non-African American 54.6 (>60); Globulin 2.3 g/dL (2-4); Potassium 4.1 mmol/L (3.5-5.0); Total Bilirubin 0.5 mg/dL (0.2-1.0); Total Protein 6.6 g/dL (6.4-8.9)
[2020-05-17] MEDS ORDERED: Morphine 2 MG/ML SYRINGE IV PRN (10:21)
[2020-05-17] MEDS ORDERED: Ondansetron 4 mg VIAL 2 MG/ML 2 ml VIAL IV PRN ×2 (10:21→17:12)
[2020-05-17] MEDS ORDERED: NS 0.9% 1000 ml BAG 1,000 ML IV SCH ×2 (10:30→15:45)
[2020-05-17 11:45] LABS: Urine Appearance Clear; Urine Bilirubin Negative (Negative); Urine Blood 1+ (Negative); Urine Color Yellow; Urine Glucose Negative (Negative); Urine Ketones Negative (Negative); Urine Nitrite Negative (Negative); Urine Protein Negative (Negative); Urine Specific Gravity 1.018 (1.010-1.030); Urine Urobilinogen Negative (Negative)
[2020-05-17 11:54] LABS: Urine Bacteria Absent (Absent); Urine Red Blood Cell 1+(3-5/hpf) (Absent); Urine White Blood Cell Absent (Absent)
[2020-05-17] MEDS ORDERED: Amphetamine/Dextroam ER 10(NF) 10 mg CAP.ER PO SCH (12:30)
[2020-05-17] MEDS ORDERED: Lidocaine 2% PF 5 ML VIAL ONE (15:13)
[2020-05-17] MEDS ORDERED: fentaNYL 100 mcg/2 ml 50 MCG/ML VIAL ONE (15:13)
[2020-05-17] MEDS ORDERED: Midazolam 2 mg/2 ml VIAL 1 mg/ml 2 ml VIAL (2 mg) ONE (15:13)
[2020-05-17] MEDS ORDERED: Propofol 10 MG/ML 20 ML BTL ONE (15:13)
[2020-05-17] MEDS ORDERED: Ondansetron 4 mg VIAL 2 MG/ML 2 ml VIAL ONE ×2 (15:13→18:15)
[2020-05-17] MEDS ORDERED: cefTRIAXone 2 GM ADDV.VIAL ONE (15:39)
[2020-05-17] MEDS ORDERED: Iohexol 180 (CONTRAST) 10 ML SDV IV ONE (15:45)
[2020-05-17] MEDS ORDERED: Dexamethasone IV 4 MG/ML VIAL 1 ml VIAL ONE (16:29)
[2020-05-17] MEDS ORDERED: HYDROmorphone 1 MG/1 ML SYRINGE IV PRN (17:12)
[2020-05-17] MEDS ORDERED: Naloxone 0.4 mg VIAL 0.4 mg/ml 1 ml VIAL IV PRN (17:12)
[2020-05-17] MEDS ORDERED: fentaNYL 100 mcg/2 ml 50 MCG/ML VIAL IV PRN (17:12)
[2020-05-17 18:36] VITALS: BP 125/73
[2020-05-18] MEDS ORDERED: Influenza VAC *QUAD* 2020-21* 0.5 ML SYRINGE IM ONE (09:00)
[2020-05-18] MEDS ORDERED: TRIFLUOPERAZINE 2 MG PO SCH (09:00)
== END 2020-05-17 19:00 | disposition home or self-care (01) ==
LOC: SSU 07:31 → ED 07:31 → SSU 10:54
PROVIDERS: ADMIT Internal Medicine; ATTEND Urology

== ENCOUNTER 2022-10-25 18:22 | Inpatient (IN) ==
[2022-10-25 19:39] LABS: ABS Eosinophils 0.3 10^3/ul (0-0.6); ABS Lymphocytes 1.6 10^3/ul (1.0-4.8); ABS Monocytes 0.6 10^3/ul (0-0.8); ABS Neutrophils 5.6 10^3/ul (1.5-7.7); Eosinophil % 3.9 %; Hematocrit 43 % (42-52); Hemoglobin 14.4 g/dL (14.0-18.0); Lymphocyte % 19.6 %; Mean Corpuscular HGB Conc 33 g/dL (31-36); Mean Corpuscular Hemoglobin 29 pg (27-31); Mean Corpuscular Volume 87 fL (80-94); Mean Platelet Volume 6.6 fL (7.4-10.4); Platelet Count 362 10^3/uL (150-450); Red Blood Count 4.97 10^6 /uL (4.18-5.48); Red Cell Distribution Width 13 % (10-15); White Blood Count 8.2 10^3/uL (3.5-10.8)
[2022-10-25 20:08] LABS: ALT 7 U/L (7-52); AST 15 U/L (13-39); Acetaminophen < 15 mcg/mL; Albumin 4.6 g/dL (3.2-5.2); Albumin/Globulin Ratio 2.2 (1-3); Alcohol, S < 13 mg/dL (<13); Alkaline Phosphatase 57 U/L (35-149); Anion Gap 4 mmol/L (2-11); Blood Urea Nitrogen 15 mg/dL (6-24); CO2 Carbon Dioxide 32 mmol/L (22-32); Calcium 9.8 mg/dL (8.6-10.3); Chloride 102 mmol/L (101-111); Creatinine, Serum 1.08 mg/dL (0.67-1.17); Globulin 2.1 g/dL (2-4); Glucose 140 mg/dL (70-100); Potassium 4.1 mmol/L (3.5-5.0); Salicylate < 2.50 mg/dL (<30); Sodium 138 mmol/L (135-145); Total Protein 6.7 g/dL (6.4-8.9); eGFR CKD-EPI 84.1 (>60)
[2022-10-25 21:06] LABS: Urine Appearance Clear; Urine Bilirubin Negative (Negative); Urine Blood Negative (Negative); Urine Color Yellow; Urine Glucose Negative (Negative); Urine Ketones Negative (Negative); Urine Nitrite Negative (Negative); Urine Protein Negative (Negative); Urine Specific Gravity 1.012 (1.002-1.030); Urine Urobilinogen Negative (Negative)
[2022-10-25 21:31] LABS: Urine Benzodiazepine Screen Presumptive Positive (None Detect); Urine Cannabinoids Screen Presumptive Positive (None Detect); Urine Opiates Screen None Detected (None Detect)
[2022-10-25] MEDS ORDERED: Al Hydrox/Mg Hydrox/Simet LIQ 30 ML UDC PO PRN (23:02)
[2022-10-26] MEDS: Vitamin THERAPEUTIC TAB PO SCH (07:02)
[2022-10-26] MEDS: CMCS: Amphetamine/Dextroam ER 10(NF) 10 mg CAP.ER PO SCH ×2 (08:05→15:10)
[2022-10-26 08:29] LABS: HDL Cholesterol 44.3 mg/dL
[2022-10-27] MEDS: CMCS: Amphetamine/Dextroam ER 10(NF) 10 mg CAP.ER PO SCH ×2 (08:08→15:18)
[2022-10-27] MEDS: Vitamin THERAPEUTIC TAB PO SCH (08:09)
[2022-10-27] MEDS ORDERED: CMCS:Meloxicam 7.5 mg TAB (NF) PO PRN (13:14)
[2022-10-28] MEDS: Vitamin THERAPEUTIC TAB PO SCH (08:18)
[2022-10-28] MEDS: CMCS: Amphetamine/Dextroam ER 10(NF) 10 mg CAP.ER PO SCH ×2 (08:18→13:37)
[2022-10-29] MEDS: CMCS: Amphetamine/Dextroam ER 10(NF) 10 mg CAP.ER PO SCH ×2 (08:09→14:07)
[2022-10-29] MEDS: Vitamin THERAPEUTIC TAB PO SCH (08:09)
[2022-10-30] MEDS: CMCS: Amphetamine/Dextroam ER 10(NF) 10 mg CAP.ER PO SCH ×2 (08:56→14:45)
[2022-10-30] MEDS: Vitamin THERAPEUTIC TAB PO SCH (08:58)
[2022-10-31 08:06] VITALS: BP 135/81
[2022-10-31] MEDS: CMCS: Amphetamine/Dextroam ER 10(NF) 10 mg CAP.ER PO SCH ×2 (09:02→15:15)
[2022-10-31] MEDS: Vitamin THERAPEUTIC TAB PO SCH (09:03)
[2022-11-05] MEDS ORDERED: ADALIMUMAB 40 MG/0.8 ML SUBCUT SCH (09:00)
== END 2022-10-31 17:40 | disposition home or self-care (01) | DRG 751 ==
LOC: ED 18:22 → BSU 21:50
PROVIDERS: ADMIT Psychiatry & Neurology Addiction Psychiatry; ATTEND Psychiatry & Neurology Addiction Psychiatry